=== PATIENT | male | born 1960 | race Caucasian/White ===

== ENCOUNTER → 2022-12-12 07:45 | Outpatient (CLI) | payer OTHER, SELFPAY ==
--- NOTE | ~2022-12-12 | MR_ITS ---
MRI of the right knee Clinical history: Pain Technique: Coronal proton density and proton density-weighted images, sagittal proton-density and T2 fat-sat images, and axial proton-density fat-saturated images were acquired. Findings: Anterior and posterior cruciate ligaments are intact. Medial collateral ligament and the la teral collateral ligament complex are intact. Popliteus tendon is intact. There is complex tearing of the posterior horn of the medial meniscus, probable vertical and horizont al tear components. There is a large radial tear at the posterior root of the medial meniscus. No def inite lateral meniscal tear identified. There is suspected tear of the inferior fascicle of the later al meniscus peripherally. There is mild chondromalacia of the medial and lateral compartments. There is mild chondromalacia pat simona. Femoral trochlear cartilage is intact. Extensor mechanism is intact. Small to moderate joint effusion is present. Large Ruiz's cyst is pres ent, extending into the calf, measuring at least 13 cm in craniocaudal extent.. Impression: Large radial tear of the posterior root of the medial meniscus with probable superimposed complex tea ring of the posterior horn, with vertical and horizontal tear components. Probable tear of the inferior fascicle of the lateral meniscus. Large Ruiz's cyst with small to moderate joint effusion. Mild chondromalacia of the knee, as detailed above. Reviewed, dictated and finalized at location . Impression: Large radial tear of the posterior root of the medial meniscus with probable martin perimposed complex tearing of the posterior horn, with vertical and horizontal tear components. Probable tear of the inferior fascicle of the lateral meniscus. Large Ruiz's cyst with small to moderate joint effusion. Mild chondromalacia of the knee, as detailed above.
== END ==
PROVIDERS: PCP Physician Assistant; Visit Provider Physician Assistant
DX: M23.221 Derangement of posterior horn of medial meniscus due to old tear or injury, right knee (principal); M71.21 Synovial cyst of popliteal space [Baker], right knee; M25.461 Effusion, right knee; M94.261 Chondromalacia, right knee
CPT/HCPCS: 73721